=== PATIENT | male | born 1975 | race Caucasian/White ===

== ENCOUNTER 2022-01-25 05:03 | Outpatient (CLI) | payer MEDICAID, OTHER | END 2022-01-25 05:04 | disposition critical access hospital (66) | LOC: EMS 05:03 | DX: Z04.6 Encounter for general psychiatric examination, requested by authority (principal); R44.3 Hallucinations, unspecified | CPT/HCPCS: A0425; A0429 ==

== ENCOUNTER 2022-01-25 05:28 | Emergency (ER) | payer MEDICAID, OTHER ==
--- NOTE | 2022-01-25 05:59 | ED Physician Documentation ---
PD HPI MHE - Stated complaint Stated Complaint: MHE/ZACHARIAH - Chief complaint Chief Complaint: MHE - History obtained from History obtained from: Patient, EMS, Police - Additional information Additional information: Patient with unknown medical history presenting for evaluation of hallucinations and paranoia's.He is brought in by EMS as an ZACHARIAH. Per the ZACHARIAH paperwork: He has reportedly been calling 911 repeatedly stating that he is "being kidnapped, mauled by dogs, wires everywhere". He then tried to enter another residence and scared the female that was there. 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 Review of Systems Constitutional: denies: Fever Cardiac: denies: Chest pain / pressure Respiratory: denies: Dyspnea GI: denies: Abdominal Pain Musculoskeletal: denies: Back pain Neurologic: denies: Headache Psychiatric: denies: Suicidal PD PAST MEDICAL HISTORY - Present Medications Home Medications: Ambulatory Orders Medication Instructions Recorded Confirmed No Known Home Medications 01/25/22 01/25/22 - Allergies Allergies/Adverse Reactions: Allergies Allergy/AdvReac Type Severity Reaction Status Date / Time No Known Drug Allergies Allergy Verified 01/25/22 05:42 PD ED PE NORMAL - General General: No acute distress, Well developed/nourished, Other (Alert, will not answer questions To assess orientation (when I ask if he knows where he is, he states "this is stupid"; When asked the month and the year he answers "Thoreau")) - HEENT HEENT: Atraumatic, PERRL, EOMI - Neck Neck: Supple, no meningeal sign, No bony TTP - Cardiac Cardiac: RRR, No murmur, Strong equal pulses - Respiratory Respiratory: No respiratory distress, Clear bilaterally - Abdomen Abdomen: Soft, Non tender - Derm Derm: Warm and dry - Extremities Extremities: No edema - Neuro Neuro: Normal speech Results - Vitals Vitals: Vital Signs - 24 hr 01/25/22 01/25/22 05:38 18:31 Temperature 36.3 C L 37.2 C Heart Rate 102 H 108 H Respiratory 18 16 Rate Blood Pressure 147/86 H 139/117 H O2 Saturation 97 97 Oxygen O2 Source Room air - Labs Labs: Laboratory Tests 01/25/22 01/25/22 01/25/22 05:51 05:51 05:51 WBC 13.4 H RBC 4.06 L Hgb 14.7 Hct 41.7 L MCV 102.7 H MCH 36.2 H MCHC 35.3 RDW 13.0 Plt Count 189 MPV 9.4 Neut # (Auto) 12.3 H Lymph # (Auto) 0.4 L [place] # (Auto) 0.6 Eos # (Auto) 0.0 Baso # (Auto) 0.1 Absolute Nucleated RBC 0.00 Nucleated RBC % 0.0 Sodium 138 Potassium 3.4 L Chloride 98 L Carbon Dioxide 25 Anion Gap 15.0 H BUN 9 Creatinine 0.8 Estimated GFR (MDRD) 104 Glucose 110 H Calcium 9.3 Total Bilirubin 1.8 H AST 275 H ALT 85 H Alkaline Phosphatase 94 Total Protein 7.6 Albumin 3.9 Globulin 3.7 Albumin/Globulin Ratio 1.1 Lipase 26 TSH 1.04 Urine Color Urine Clarity Urine pH Ur Specific Gibson Urine Protein Urine Glucose (UA) Urine Ketones Urine Occult Blood Urine Nitrite Urine Bilirubin Urine Urobilinogen Ur Leukocyte Esterase Urine RBC Urine WBC Ur Squamous Epith Cells Urine Bacteria Urine Casts Urine Mucus Ur Microscopic Review Urine Culture Comments Salicylates < 6.0 Urine Opiates Screen Ur Oxycodone Screen Urine Methadone Screen Ur Propoxyphene Screen Acetaminophen < 10 L Ur Barbiturates Screen Ur Tricyclics Screen Ur Phencyclidine Scrn Ur Amphetamine Screen U Methamphetamines Scrn U Benzodiazepines Scrn Urine Cocaine Screen U Cannabinoids Screen Ethyl Alcohol < 5.0 SARS-CoV-2 (PCR) 01/25/22 01/25/22 05:51 07:00 WBC RBC Hgb Hct MCV MCH MCHC RDW Plt Count MPV Neut # (Auto) Lymph # (Auto) [place] # (Auto) Eos # (Auto) Baso # (Auto) Absolute Nucleated RBC Nucleated RBC % Sodium Potassium Chloride Carbon Dioxide Anion Gap BUN Creatinine Estimated GFR (MDRD) Glucose Calcium Total Bilirubin AST ALT Alkaline Phosphatase Total Protein Albumin Globulin Albumin/Globulin Ratio Lipase TSH Urine Color DARK YELLOW Urine Clarity CLEAR Urine pH 6.5 Ur Specific Gibson >=1.030 H Urine Protein 100 H Urine Glucose (UA) NEGATIVE Urine Ketones >=80 H Urine Occult Blood MODERATE H Urine Nitrite NEGATIVE Urine Bilirubin NEGATIVE Urine Urobilinogen 2 H Ur Leukocyte Esterase NEGATIVE Urine RBC TNTC H Urine WBC >25 H Ur Squamous Epith Cells MANY Squamous H Urine Bacteria Many H Urine Casts >50 Hyaline Casts Urine Mucus Marked Strands Ur Microscopic Review INDICATED Urine Culture Comments NOT INDICATED Salicylates Urine Opiates Screen NEGATIVE Ur Oxycodone Screen NEGATIVE Urine Methadone Screen NEGATIVE Ur Propoxyphene Screen NEGATIVE Acetaminophen Ur Barbiturates Screen NEGATIVE Ur Tricyclics Screen NEGATIVE Ur Phencyclidine Scrn NEGATIVE Ur Amphetamine Screen POSITIVE H U Methamphetamines Scrn POSITIVE H U Benzodiazepines Scrn NEGATIVE Urine Cocaine Screen NEGATIVE U Cannabinoids Screen POSITIVE H Ethyl Alcohol SARS-CoV-2 (PCR) NOT DETECTED PD MEDICAL DECISION MAKING - ED course Complexity details: re-evaluated patient ED course: 06 - Patient has slightly elevated bilirubin and LFTs. No previous labs for comparison. No records in [facility] everywhere. Patient's abdominal exam is benign with no tenderness to the right upper quadrant. I asked the patient about alcohol use and he states he does drink a lot. He is unsure of his last drink. He then quickly changes the topic to asking about why people are behind the curtain with the microphone recording him.He is able to tell me that he [place] staying [place]. He is unsure of why he was brought to the emergency department.He says he was calling on 911 because people were breaking into his place. Patient is requesting water in order to give a urine sample and I did provide him with 2 glasses of water.Based on the ZACHARIAH form I do have concerns that the patient is gravely disabled By his paranoias And will request evaluation by the DCR As he was not agreeable to hospitalization. Departure - Departure Disposition: [facility] Hosp/Unit DC/Xfer Clinical Impression: Paranoid psychosis, Polysubstance abuse, Withdrawal complaint Condition: Stable
[2022-01-25 06:01] LABS: BASOPHILS # (AUTO) 0.1 10^3/uL (0.0-0.1); BASOPHILS % (AUTO) 0.4 %; HCT - HEMATOCRIT 41.7 % (42.0-52.0); HGB - HEMOGLOBIN 14.7 g/dL (14.0-18.0); LYMPHOCYTES # (AUTO) 0.4 10^3/uL (1.5-3.5); LYMPHOCYTES % (AUTO) 3.2 %; MEAN CORPUSCULAR HEMOGLOBIN 36.2 pg (27.0-31.0); MEAN CORPUSCULAR HGB CONC 35.3 g/dL (32.0-36.0); MEAN CORPUSCULAR VOLUME 102.7 fL (80.0-94.0); MEAN PLATELET VOLUME 9.4 fL (7.4-11.4); MONOCYTES # (AUTO) 0.6 10^3/uL (0.0-1.0); MONOCYTES % (AUTO) 4.4 %; NEUTROPHILS # (AUTO) 12.3 10^3/uL (1.5-6.6); NEUTROPHILS % (AUTO) 91.6 %; PLT - PLATELET COUNT 189 10^3/uL (130-450); RED BLOOD COUNT 4.06 10^6/uL (4.70-6.10); WHITE BLOOD COUNT 13.4 x10^3/uL (4.8-10.8)
[2022-01-25 06:23] LABS: ACETAMINOPHEN < 10 ug/mL (10-30); ALBUMIN 3.9 g/dL (3.2-5.5); ALBUMIN/GLOBULIN RATIO 1.1 (1.0-2.2); ALKALINE PHOSPHATASE 94 IU/L (42-121); ALT ALANINE AMINOTRANSFERASE 85 IU/L (10-60); AST ASPARTATE AMINOTRANSFERASE 275 IU/L (10-42); BILIRUBIN,TOTAL 1.8 mg/dL (0.2-1.0); BUN - BLOOD UREA NITROGEN 9 mg/dL (6-20); CALCIUM 9.3 mg/dL (8.5-10.3); CARBON DIOXIDE - CO2 25 mmol/L (21-32); CHLORIDE 98 mmol/L (101-111); CREATININE 0.8 mg/dL (0.6-1.2); ETOH - ETHANOL < 5.0 mg/dL; GFR - MDRD 104 (>89); GLUCOSE 110 mg/dL (70-100); LIPASE 26 U/L (22-51); POTASSIUM 3.4 mmol/L (3.5-5.0); SALICYLATE < 6.0 mg/dL; SODIUM 138 mmol/L (135-145); TOTAL PROTEIN 7.6 g/dL (6.7-8.2)
[2022-01-25] MEDS ORDERED: POTASSIUM CHLORIDE 20 MEQ TABLET PO STA (06:43)
[2022-01-25 07:04] LABS: MUDS CUTOFF CONCENTRATIONS CUTOFF CONC BELOW:
[2022-01-25 07:07] LABS: GLUCOSE, URINE (UA) NEGATIVE (NEGATIVE); KETONES,URINE (UA) >=80 mg/dL (NEGATIVE); LEUKOCYTE ESTERASE, URINE NEGATIVE (NEGATIVE); NITRITE,URINE NEGATIVE (NEGATIVE); OCCULT BLOOD,URINE MODERATE (NEGATIVE); PH,URINE 6.5 PH (5.0-7.5); PROTEIN,URINE 100 mg/dL (NEGATIVE); UROBILINOGEN,URINE 2 E.U./dL (NORMAL)
[2022-01-25 07:10] LABS: CLARITY,URINE CLEAR (CLEAR)
[2022-01-25 07:11] LABS: BILIRUBIN,URINE NEGATIVE (NEGATIVE); ICTOTEST,URINE NEGATIVE
[2022-01-25 07:26] LABS: BACTERIA,URINE Many /HPF (None Seen); CASTS, URINE >50 Hyaline Casts /LPF; MUCUS,URINE Marked Strands; RBC,URINE TNTC /HPF (0-5); SQUAMOUS EPITHELIAL CELL,UR MANY Squamous (<= Few); WBC,URINE >25 /HPF (0-3)
[2022-01-25 07:27] LABS: AMPHETAMINE SCREEN,URINE POSITIVE (NEGATIVE); BARBITURATE SCREEN,UR NEGATIVE (NEGATIVE); BENZODIAZEPINES SCREEN, URINE NEGATIVE (NEGATIVE); COCAINE SCREEN URINE NEGATIVE (NEGATIVE); METHADONE SCREEN, URINE NEGATIVE (NEGATIVE); METHAMPHETAMINES SCREEN, URINE POSITIVE (NEGATIVE); OPIATE SCREEN, URINE NEGATIVE (NEGATIVE); OXYCODONE SCREEN, URINE NEGATIVE (NEGATIVE); PROPOXYPHENE SCREEN, URINE NEGATIVE (NEGATIVE); THC CANNABINOID SCREEN, URINE POSITIVE (NEGATIVE); TRICYCLIC ANTIDEPRESSANT,URINE NEGATIVE (NEGATIVE)
--- NOTE | 2022-01-25 10:12 | ED Physician Documentation ---
ED Addendum - Addendum Addendum: 01/25/22 10:11The patient was awake and conversant. He seemed a little bit anxious and fidgety as I talked briefly with him. He did not have any particular complaints. He still had concerns about people watching him with cameras and feeling scrutinized. He was willing to have social work talk with him about potential treatments. I did not broach hospitalization at this point but would let social work talk with him. He did have breakfast without any problems. New medications were preplanned for him for this morning. We have no medicine list on daily medicines for him. Consider mild antipsychotic type medicines if he allows.
[2022-01-25] MEDS ORDERED: LORazepam 1 MG TABLET PO STA (15:54)
[2022-01-25 22:08] VITALS: BP 147/98
== END 2022-01-25 22:22 ==
LOC: ED 05:28
DX: F22 Delusional disorders (principal); F19.139 Other psychoactive substance abuse with withdrawal, unspecified; Z20.822 Contact with and (suspected) exposure to COVID-19
CPT/HCPCS: 36415; 80053; 80306; 80307; 80320; 80329; 81001; 83690; 84443; 85025; 87635; 99283; 99285; A9270; J8499; 81003; 87086